=== PATIENT | female | born 1960 | race Caucasian/White ===

== ENCOUNTER 2016-08-10 07:38 | Observation (INO) | payer OTHER ==
[~2016-08-10] VITALS: Ht 167.6 cm; Wt 68.9 kg
[2016-08-10] MEDS ORDERED: RIVA1.5C PO (07:53)
[2016-08-10] MEDS ORDERED: RIVA6CAP PO (07:53)
[2016-08-10] MEDS ORDERED: QUET5TAB PO (07:53)
[2016-08-10] MEDS ORDERED: ZOLO100T PO (07:53)
[2016-08-10] MEDS ORDERED: ONDANSETRON 4MG/2ML VIAL (J2405) As Ordered ONE (08:13)
[2016-08-10] MEDS ORDERED: ONDANSETRON 4MG/2ML VIAL (J2405) IV ONE (08:15)
--- NOTE | 2016-08-10 08:16 | REP ---
Emergency noncontrast brain CT. History: Trauma. Findings: Digital lateral piano professor radiograph is unremarkable. Bone window settings demonstrate an intact bony calvarium. No skull fracture or bony destructive lesion is seen. The visualized paranasal sinuses are clear. No intraorbital abnormality is seen. There is mild to moderate diffuse cerebral atrophy. There is a small zone of intracranial hemorrhage along the falx near the vertex consistent with a small localized area of subdural or subarachnoid blood. There is a hemorrhagic contusion in the left frontal lobe medially. No rebecca hematoma is seen. The acute blood collection adjacent to the falx measures 1.5 x 0.4 cm. No parenchymal hematoma is appreciated. No midline shift is seen. No evidence of infarction or mass. Impression: 1. Hemorrhagic contusion in the left posteromedial frontal lobe. 2. 1.5 x 0.4 cm collection of acute blood adjacent to the falx may be subdural or subarachnoid. Findings were telephoned to the referring provider at the time of this dictation. Signed by Donte Glass MD 08/10/2016 10:43 A
[2016-08-10 08:20] LABS: BASO % 0.3 % (0.0-1.0); EOS # 0.1 K/mm3 (0.0-0.50); EOS % 1.5 % (0.0-3.0); LARGE UNSTAINED CELL # 0.1 K/mm3 (0.0-0.4); LYMPH # 1.8 K/mm3 (1.5-4.5); LYMPH % 25.4 % (24.0-44.0); MEAN CORPUSCULAR HEMOGLOBIN 27.3 pg (27.0-33.0); MEAN CORPUSCULAR HGB CONC 32.8 g/dl (32.0-36.5); MEAN CORPUSCULAR VOLUME 83.2 fl (80.0-96.0); MONO # 0.3 K/mm3 (0.0-0.8); MONO % 5.1 % (0.0-5.0); NEUTROPHILS # 4.4 K/mm3 (1.8-7.7); NEUTROPHILS % 65.7 % (36.0-66.0); PLATELET COUNT, AUTOMATED 259 k/mm3 (150-450); RED CELL DISTRIBUTION WIDTH 14.1 % (11.5-14.5); WHITE BLOOD COUNT 6.7 K/mm3 (4.0-10.0)
[2016-08-10 08:26] LABS: INR 0.97
[2016-08-10] MEDS ORDERED: METAL LOCK LOOP XX ONE (08:27)
[2016-08-10 08:29] LABS: VENOUS BASE EXCESS -2.3 (-2.0-2.0); VENOUS O2 SATURATION 86.1 % (60.0-80.0); VENOUS PARTIAL PRESSURE CO2 35.1 mmHg (38.0-50.0); VENOUS PARTIAL PRESSURE O2 49.8 mmHg (30.0-50.0); VENOUS STANDARD HCO3 22.3 MEQ/L; VENOUS TOTAL CO2 22.8 MEQ/L (24.0-28.0)
--- NOTE | 2016-08-10 08:29 | REP ---
Portable chest: Single view. History: Syncope. Comparison study: June 10, 2012. Findings: The lungs are well inflated and clear. Pleural angles are sharp. Heart size is normal. EKG monitoring electrodes overlie the chest. No bony abnormality is seen. Impression: No active disease. Signed by Donte Glass MD 08/10/2016 08:20 A
[2016-08-10 08:41] LABS: ABG BASE EXCESS 0.2 (-2.0-2.0); ABG HCO3 23.4 MEQ/L (22.0-26.0); ABG PARTIAL PRESSURE CO2 33.3 mmHg (35.0-45.0); ABG PARTIAL PRESSURE O2 123.4 mmHg (75.0-100.0); ABG STANDARD HCO3 24.7 MEQ/L (22.0-26.0); ABG TOTAL CO2 24.4 MEQ/L (22.0-29.0); ABG pH (ARTERIAL) 7.464 UNITS (7.350-7.450)
[2016-08-10 08:45] LABS: ANION GAP 12 MEQ/L (8-16); BLOOD UREA NITROGEN 11 MG/DL (7-18); CALCIUM LEVEL 8.6 MG/DL (8.5-10.1); CARBON DIOXIDE LEVEL 24 MEQ/L (21-32); CHLORIDE LEVEL 110 MEQ/L (98-107); CREATININE FOR GFR 0.75 MG/DL (0.55-1.02); FREE T4 0.89 NG/DL (0.76-1.46); GLOMERULAR FILTRATION RATE > 60.0 (>51); GLUCOSE, FASTING 130 MG/DL (70-105); MAGNESIUM LEVEL 2.4 MG/DL (1.8-2.4); POTASSIUM SERUM 3.7 MEQ/L (3.5-5.1); SODIUM LEVEL 146 MEQ/L (136-145)
--- NOTE | 2016-08-10 09:03 | REP ---
CT STUDY OF THE CERVICAL SPINE WITHOUT CONTRAST: HISTORY: Trauma. Fall down the stairs. TECHNIQUE: Helical scanning is acquired and overlapping 2 mm high resolution axial images were generated and reviewed at bone and soft tissue window settings. Coronal and sagittal multiplanar re-formations images are generated. CT FINDINGS: There is no evidence of cervical spine element fracture. No skull base fracture is seen. Cervical vertebral body heights are preserved. There are discogenic spurs changes consistent with degenerative disc disease at C5-6 and C6-7. Mild osteoarthritic facet changes are noted. Alignment is normal. Facet joints are normally aligned bilaterally at each cervical level on multiplanar re-formations images. There is no evidence of intraspinal or paraspinal hematoma. No extra vertebral abnormality is seen. IMPRESSION: Mild degenerative spondylosis changes, otherwise negative CT study of the cervical spine without contrast. No fracture seen. Signed by Donte Glass MD 08/10/2016 10:44 A
[2016-08-10] MEDS ORDERED: NS 1,000 ML in APPROPRIATE DILUENT 1 EA IV ONE (09:15)
[2016-08-10] MEDS ORDERED: AMIODARONE 150MG/3ML INJ (J0282) As Ordered ONE (09:49)
[2016-08-10] MEDS ORDERED: levETIRAcetam INJection 500 MG in D5W MINI-BAG PLUS 100 ML IV ONE (10:15)
--- NOTE | 2016-08-10 10:39 | REP ---
Right shoulder series: Three views. History: Injury. Findings: The right glenohumeral and acromioclavicular joints are normally aligned. Periarticular soft tissues are unremarkable. There is some diffuse osteopenia. Impression: Negative right shoulder views. Signed by Donte Glass MD 08/10/2016 10:46 A
[2016-08-10] MEDS: D5W/0.45% SODIUM CHLORIDE 1,000 ML IV SCH (13:16)
[2016-08-10] MEDS ORDERED: MORPHINE 2 MG/ML 1ML SYRINGE IV ONE (13:45)
--- NOTE | 2016-08-10 14:30 | CR ---
DATE OF CONSULTATION: 08/10/2016 REFERRING PHYSICIAN: Dr. Marinelli, neurosurgeon, via Dr. Cardenas, emergency room physician. REASON FOR CONSULT: Medical management. CHIEF COMPLAINT: Fall. Confusion. HISTORY OF PRESENT ILLNESS: This is a 56-year-old female who had been in her usual state of health until about two years ago when she had significant dementia notable at work. She was fully worked up by Dr. Stroud and was diagnosed with Lewy body dementia and has been full care since. The patient had been doing well at home with her with 24-7 care when she fell this morning as she was coming down the stairs. According to the , the patient has been well and denied any fever, chills, nausea, vomiting, diarrhea, chest pain, pressure, tightness, shortness of breath, palpitations, or lightheadedness. No lower or upper extremity weakness or paresthesias. No sick contacts. The patient awoke this morning. The went down to the kitchen to make some coffee and asked her if she wanted some coffee. The patient was heard at the top of the stairs and said that yes she did want some coffee. Her told her to come down. The patient said yes and within a few seconds the patient's heard a big thump down the stairs. The patient was found on the floor flat on her back and appeared to be having tonic clonic movements for a few seconds. The then called 911 at 7:11. EMS arrived up to about 20 minutes later. The patient was unconscious. According to the , the patient may have been wearing reading glasses as opposed to her other set of glasses, prompting her to miss some steps on the stairs and landing on her back. In the emergency room, she was found to have a 1.5 x 0.4 cm collection of acute blood in the falx, maybe subdural or subarachnoid hemorrhage. Hemorrhagic contusion was found in the left posteromedial frontal lobe. The patient awoke. She was given IV levetiracetam in the emergency room. Dr. Marinelli admitted the patient to neurosurgical services and the hospitalist was consulted via Dr. Cardenas who is the emergency room physician. The patient appeared to be stable. Pupils were reactive to light. The hospitalist service was called for consultation. PAST MEDICAL HISTORY: 1. Lewy body dementia for the past two years. Complete care at home with 24/7 care. 2. Depression. PAST SURGICAL HISTORY: None, as the patient is demented and not answering questions appropriately. HOME MEDICATIONS: - rivastigmine 1.5 twice a day - quetiapine 50 mg daily at bedtime - Zoloft 100 mg daily ALLERGIES: No known drug allergies. SOCIAL HISTORY: Lives with who provides 24/7 care. 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 No history of smoking. 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 No social alcohol use. No recreational drug use. FAMILY HISTORY: None, unable to be obtained as the history is obtained from the patient's . REVIEW OF SYSTEMS: Could not be obtained as the patient is demented, does not respond and moans at the bedside. PHYSICAL EXAMINATION: Temperature 97.6, pulse 77 - sinus, respiratory rate 20, blood pressure 127/77, 100% on room air. Generally, patient is awake, alert and oriented to person only. She has purposeful movements at the bedside. She has her eyes open, crying. Pupils are equally round and reactive to light and accommodation. Could not perform extraocular muscles as the patient is not cooperative. No jugular venous distention. No thyromegaly. No cervical lymphadenopathy. Lungs are clear to auscultation. No wheezing, rales or rhonchi. Heart: S1, S2. Sinus rhythm. No murmurs, rubs or gallops. Abdomen is soft, nontender and nondistended. Positive bowel sounds. Extremities: No cyanosis, clubbing or pitting edema. Neurologically, patient is not cooperative. She is moving her upper and lower extremities with purposeful movement. Patient does not follow commands. She has her eyes open and crying. EKG: Sinus rhythm. Ventricular rate of 76. UT interval 159. QRS duration 106. QTc of 437. No acute ischemic changes. LAB DATA: White count 6.7, hemoglobin 12, hematocrit 38, and platelet count 259. Sodium 146, potassium 3.7, chloride 110, bicarbonate 24, BUN 11, creatinine 0.75 , glucose 130. Ammonia level 17. Magnesium 2.4. Calcium 8.6. Total CK 144. MB fraction 1.2. Troponin less than 0.02. TSH 1.69. Free T4 is 0.89. MICROBIOLOGY: Pending. IMAGING STUDIES: CT of the head with hemorrhagic contusion left posteromedial frontal lobe, 1.5 x 0.4 collection of acute blood adjacent to the falx, may be subdural or subarachnoid. Cervical spine CT with no acute fracture or dislocation. Mild degenerative spondylolysis, otherwise negative CT, without contrast. Chest x-ray on 08/10/2016 with no active disease. Shoulder x-ray on 08/10/2016 negative right shoulder x-ray. ASSESSMENT AND PLAN: This is a 56-year-old female with recent diagnosis of Lewy body dementia for the past two years who has been full care at home with 24/7 care. Her is the primary caregiver. She was in her usual state of health until this morning when she fell down 12 steps at home as she was trying to get down to the kitchen to have her morning coffee. According to the , the patient had tonic clonic activity and was found flat on the floor with a 20 minute loss of consciousness until EMS arrived. She had a postictal confusion. No urine incontinence. She was brought in to the emergency room for further evaluation. She was found to have an acute 1.5 x 0.4 cm collection of blood in the falx, may be subdural or subarachnoid hemorrhage. The patient has been admitted under Dr. Marinelli, neurosurgical services. The hospitalist service was consulted for medical management. CURRENT ISSUES: 1. Acute 1.5 x 0.4 cm collection of blood, may be subdural or subarachnoid hemorrhage secondary to mechanical fall. Patient is under neurosurgical services, Dr. Marinelli. Neuro checks every 4 hours if possible. Repeat CT imaging to rule out edema or worsening progressive bleeding. At this time, she had been given IV Keppra for possible seizure activity status post head trauma with loss of consciousness of about [address] Marinelli for further neurosurgical management. 2. Seizure activity. The patient had fallen with head trauma with new acute blood found in the falx, possible subdural or subarachnoid hemorrhage. At this time, defer to Dr. Marinelli for further management. Currently on IV Keppra 500 mg every 12 hours. Keep nothing by mouth (n.p.o.) as the patient may continue to decompensate and may require intubation as well as neurosurgical intervention. Keep on D5 1/2 normal saline at 60 an hour. Monitor for mental status changes. no current signs of aspiration. no empiric antibiotics 3. Mechanical fall. Per the , the patient may have been wearing the wrong glasses as she came down the steps and had landed on her back with head trauma. The patient has not had prior history of recurrent falls in the past and is usually steady on her feet. According to the , there were no prodromal symptoms and the patient has been in her usual state of health. She denied any infectious symptoms prior to her fall. 4. Dehydration and hypernatremia. IV fluid hydration. 5. History of Lewy body dementia, progressive. The patient is 24/7 care at home per the who is the primary caregiver. 6. Deep vein thrombosis (DVT) prophylaxis with compression stockings due to acute brain hemorrhage. The patient is an intensive care unit (ICU) patient with continued telemetry monitoring. NIKI
--- NOTE | 2016-08-10 15:03 | ECGEPIP ---
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
[2016-08-10] MEDS ORDERED: LORazepam 2 MG/ML VIAL (J2060) As Ordered ONE (15:23)
[2016-08-10] MEDS ORDERED: LORazepam 2 MG/ML VIAL (J2060) IV STA (15:24)
[2016-08-10 16:00] VITALS: BP 110/54
[2016-08-10 18:00] VITALS: BP 121/67
[2016-08-10] MEDS: LORazepam 2 MG/ML VIAL (J2060) IV PRN ×2 (18:32→22:13)
[2016-08-10 20:00] VITALS: BP 132/65
[2016-08-10 20:30] VITALS: BP 134/63
[2016-08-10] MEDS ORDERED: ONDANSETRON 4MG/2ML VIAL (J2405) IV PRN (20:45)
[2016-08-10 22:00] VITALS: BP 128/62
[2016-08-10] MEDS: levETIRAcetam INJection 500 MG in D5W MINI-BAG PLUS 100 ML IV SCH (22:13)
[2016-08-11] VITALS (7 sets, daily range): BP systolic 100–116; BP diastolic 56–98
[2016-08-11] MEDS: D5W/0.45% SODIUM CHLORIDE 1,000 ML IV SCH (05:05)
[2016-08-11 05:10] LABS: BASO % 0.2 % (0.0-1.0); EOS % 0.5 % (0.0-3.0); LARGE UNSTAINED CELL # 0.1 K/mm3 (0.0-0.4); LARGE UNSTAINED CELL % 1.1 % (0.0-4.0); LYMPH # 0.9 K/mm3 (1.5-4.5); LYMPH % 13.8 % (24.0-44.0); MEAN CORPUSCULAR HEMOGLOBIN 27.4 pg (27.0-33.0); MEAN CORPUSCULAR HGB CONC 33.1 g/dl (32.0-36.5); MEAN CORPUSCULAR VOLUME 82.7 fl (80.0-96.0); MONO # 0.4 K/mm3 (0.0-0.8); MONO % 5.6 % (0.0-5.0); NEUTROPHILS % 78.7 % (36.0-66.0); PLATELET COUNT, AUTOMATED 170 k/mm3 (150-450); RED CELL DISTRIBUTION WIDTH 13.7 % (11.5-14.5); WHITE BLOOD COUNT 6.3 K/mm3 (4.0-10.0)
[2016-08-11 05:29] LABS: ALBUMIN 3.3 GM/DL (3.2-5.2); ALKALINE PHOSPHATASE 74 U/L (45-117); ALT/SGPT 17 U/L (12-78); ANION GAP 7 MEQ/L (8-16); AST/SGOT 14 U/L (15-37); BILIRUBIN,TOTAL 0.4 MG/DL (0.2-1.0); BLOOD UREA NITROGEN 8 MG/DL (7-18); CARBON DIOXIDE LEVEL 26 MEQ/L (21-32); CHLORIDE LEVEL 112 MEQ/L (98-107); CREATININE FOR GFR 0.53 MG/DL (0.55-1.02); GLOMERULAR FILTRATION RATE > 60.0 (>51); GLUCOSE, FASTING 124 MG/DL (70-105); POTASSIUM SERUM 3.5 MEQ/L (3.5-5.1); SODIUM LEVEL 145 MEQ/L (136-145); TOTAL PROTEIN 6.3 GM/DL (6.4-8.2)
[2016-08-11] MEDS ORDERED: MORPHINE 2 MG/ML 1ML SYRINGE IV ONE (06:45)
--- NOTE | 2016-08-11 06:50 | REPUSA ---
CLINICAL HISTORY: Followup exam. Contusion. TECHNIQUE: Multiple axial CT images were obtained through the brain without IV contrast material. COMMENTS: Comparison to the prior exam performed on 08/10/2016. There is no change in 3.5 mm maximum thickness parafalcine subdural hematoma. No associated mass effect. There is normal configuration of sella turcica. There is no mass effect or midline shift. No hydrocephalus is present. The ventricles are symmetrical. No abnormal calcifications are present. There is diffuse age-appropriate cerebellar and cerebral atrophy with proportionally dilated ventricl es and cortical sulci. There are bilateral periventricular and subcortical white matter hypolucencies compatible with mild c hronic microvascular disease. Otherwise, no other acute significant focal abnormalities are seen either in the posterior fossa or s upratentorial compartment. IMPRESSION: 1. Age-appropriate cerebellar and cerebral atrophy. 2. Mild chronic microvascular disease. 3. No change in the right parafalcine subdural hematoma. Thank you for your kind referral of this patient.
[2016-08-11 07:07] LABS: CALCIUM OXALATE CRYSTALS SMALL
[2016-08-11] MEDS ORDERED: KEPP500T6 PO (08:32)
--- NOTE | 2016-08-11 09:00 | ECGEPIP ---
Stationary ECG Study [facility] - ED Test Date: 2016-08-10 Pat Name: SHIRLEY GUTHRIE Department: Room: - Gender: F Facing Baster: blaise : 1960 Requested By: Ethel Mccarty Order Number: [id number] Reading MD: Ethel Mccarty Measurements Intervals [place] Rate: 76 P: 50 OR: 159 QRS: 62 QRSD: 106 T: 59 QT: 407 QTc: 459 Interpretive Statements SINUS RHYTHM NSTTW ABNORMALITY BASELINE ARTIFACT LIMITS INTERPRETATION NO PRIOR FOR COMPARISON Electronically Signed On 08-11-2016 8:59:56 EST by Ethel Mccarty
[2016-08-11] MEDS: levETIRAcetam INJection 500 MG in D5W MINI-BAG PLUS 100 ML IV SCH ×2 (09:03→21:07)
[2016-08-11] MEDS: SERTRALINE 100 MG TAB PO SCH (09:03)
[2016-08-11] MEDS: RIVASTIGMINE TARTRATE 1.5 MG CAP (EXELON) PO SCH ×2 (09:03→21:00)
[2016-08-11] MEDS: MORPHINE 2 MG/ML 1ML SYRINGE IV PRN (12:22)
--- NOTE | 2016-08-11 14:37 | ECGEPIP ---
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
[2016-08-11] MEDS: QUEtiapine FUMARATE 50 MG TAB PO SCH (21:07)
[2016-08-11] MEDS: LORazepam 2 MG/ML VIAL (J2060) IV PRN (21:42)
[2016-08-12] VITALS (7 sets, daily range): BP systolic 98–137; BP diastolic 56–75
[2016-08-12] MEDS ORDERED: D5W/0.45% SODIUM CHLORIDE 1,000 ML IV SCH (01:45)
[2016-08-12 04:58] LABS: MEAN CORPUSCULAR HEMOGLOBIN 27.4 pg (27.0-33.0); MEAN CORPUSCULAR HGB CONC 33.1 g/dl (32.0-36.5); MEAN CORPUSCULAR VOLUME 82.9 fl (80.0-96.0); PLATELET COUNT, AUTOMATED 150 k/mm3 (150-450); RED CELL DISTRIBUTION WIDTH 13.7 % (11.5-14.5); WHITE BLOOD COUNT 4.5 K/mm3 (4.0-10.0)
[2016-08-12 05:06] LABS: ANION GAP 6 MEQ/L (8-16); BLOOD UREA NITROGEN 5 MG/DL (7-18); CALCIUM LEVEL 7.8 MG/DL (8.5-10.1); CARBON DIOXIDE LEVEL 28 MEQ/L (21-32); CHLORIDE LEVEL 113 MEQ/L (98-107); CREATININE FOR GFR 0.46 MG/DL (0.55-1.02); GLOMERULAR FILTRATION RATE > 60.0 (>51); GLUCOSE, FASTING 118 MG/DL (70-105); POTASSIUM SERUM 3.5 MEQ/L (3.5-5.1); SODIUM LEVEL 147 MEQ/L (136-145)
[2016-08-12 06:26] LABS: BASO % 0.3 % (0.0-1.0); EOS # 0.1 K/mm3 (0.0-0.50); EOS % 1.3 % (0.0-3.0); LARGE UNSTAINED CELL # 0.1 K/mm3 (0.0-0.4); LARGE UNSTAINED CELL % 1.4 % (0.0-4.0); LYMPH # 1.1 K/mm3 (1.5-4.5); LYMPH % 21.9 % (24.0-44.0); MONO # 0.3 K/mm3 (0.0-0.8); MONO % 6.7 % (0.0-5.0); NEUTROPHILS # 3.3 K/mm3 (1.8-7.7); NEUTROPHILS % 68.4 % (36.0-66.0)
[2016-08-12 06:28] LABS: DIFF SLIDE NUMBER 69
[2016-08-12 06:31] LABS: AST/SGOT 13 U/L (15-37); BILIRUBIN,TOTAL 0.4 MG/DL (0.2-1.0); MAGNESIUM LEVEL 2.1 MG/DL (1.8-2.4)
[2016-08-12 06:46] LABS: ALKALINE PHOSPHATASE 66 U/L (45-117); ALT/SGPT 15 U/L (12-78)
[2016-08-12] MEDS: LORazepam 2 MG/ML VIAL (J2060) IV PRN (07:21)
--- NOTE | 2016-08-12 08:03 | ECGEPIP ---
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
[2016-08-12] MEDS: levETIRAcetam INJection 500 MG in D5W MINI-BAG PLUS 100 ML IV SCH ×2 (08:44→20:58)
[2016-08-12] MEDS: SERTRALINE 100 MG TAB PO SCH (08:45)
[2016-08-12] MEDS: RIVASTIGMINE TARTRATE 1.5 MG CAP (EXELON) PO SCH ×2 (08:46→20:56)
[2016-08-12] MEDS: MORPHINE 2 MG/ML 1ML SYRINGE IV PRN ×2 (09:25→19:53)
--- NOTE | 2016-08-12 12:08 | REP ---
REASON: History of hematoma. Prior exam of 08/11/2016 reviewed. The small parafalcine hematoma has improved with a minimal persistent residual at the convexities. Unchanged bilateral subdural lucencies are noted. There is no change in the appearance of the ventricles and sulci. There is no shift of the midline structures. There is no acute intracranial hemorrhage. There is no change in the appearance of the skull. There is no evidence of a fracture. Minimal mucosal thickening is seen in the ethmoid sinuses. IMPRESSION: Chronic changes and improvement as described above. Signed by Malcolm Alejandra DO 08/12/2016 01:52 P
--- NOTE | 2016-08-12 12:09 | IPN ---
DATE: 08/11/2016 Overnight, the patient was extremely agitated and anxious with her new environment in the intensive care unit (ICU). Per the , the patient was beside herself and could not be calmed down, requiring IV Ativan 0.25 mg every four hours. Per nursing, the patient was jumping out of the bed. They were unable to redirect her verbally, required medications. The patient was restarted back on her home medications. The patient's and daughter stayed with her overnight at the bedside. There appears to be no new neurological changes. Repeat CT of the head remains unchanged from prior CT of the head at 7:42 on 08/10/2016. No edema. No midline shift. No increase in the intracranial hemorrhage. VITAL SIGNS: Temperature 98.3, pulse 68, respiratory rate 16, blood pressure 110/62, 95% on room air. The patient responds to voice. Spontaneously opens her eyes and has purposeful movements. Localizes to pain. Pupils are equal, round and reactive to light and accommodation. 4 mm. She moans and is nonverbal. Motor function is 5/5 times four extremities. LABORATORY DATA: White count 6.3, hemoglobin 12, hematocrit 36, platelet count 170. Sodium 145, potassium 3.5, chloride 115, bicarbonate 26, BUN 8, creatinine 0.53, glucose of 124. Urine culture is pending. RSV negative. Methicillin resistant Staphylococcus aureus (MRSA) screen pending. IMAGING: Repeat CT of the head shows age appropriate cerebellar and cerebral atrophy, mild chronic microvascular changes, no change in the 3.5 mm subdural hematoma. No associated mass effect or midline shift. No hydrocephalus. IMPRESSION: 56-year-old female with a history of Lewy-Body dementia, full care at home with 24/7 care. The is the primary caregiver. Presents to the emergency room after falling from a standing height down 12 to 13 steps at home due to mechanical fall, no prodromal symptoms. The patient had tonic-clonic activity and loss of consciousness for 20 minutes. Was found to have a subdural hematoma. Admitted for observation with no surgical intervention. The patient had been placed on IV Keppra for seizure prophylaxis. She has been agitated throughout this admission and needed to receive Ativan as needed for restlessness and agitation and combativeness. CURRENT ISSUES: 1. Acute 3.5 mm subdural hematoma with no mass effect or edema. The patient is on antiseizure prophylaxis. Status post mechanical fall at home from standing position down 12 steps. The patient is currently under neurosurgical service with Dr. Marinelli. Defer to Dr. Marinelli for management of brain hemorrhage at this time. She is kept on Keppra 500 mg intravenously. Clears diet. is anxious to take her home, as her delirium is worsening due to change in environment. Defer to Dr. Marinelli as primary for discharge planning. Advance diet per Dr. Marinelli. 2. Lewy-Body dementia, chronic. Requires / care. 3. Witnessed seizure. On Keppra twice a day. 4. Mechanical fall. Per the , the patient was wearing the wrong glasses as she came down the stairs, landed on the back with head trauma and loss of consciousness for 20 minutes. 5. Dehydration and hypernatremia. IV fluid hydration and clear diet. 6. Deep vein thrombosis (DVT) prophylaxis with compression stockings. DISPOSITION: Defer to primary team, Dr. Marinelli.
[2016-08-12] MEDS: D5W/0.45% SODIUM CHLORIDE 1,000 ML IV SCH (19:03)
[2016-08-12] MEDS: ONDANSETRON 4MG/2ML VIAL (J2405) IV PRN (19:52)
[2016-08-12] MEDS: QUEtiapine FUMARATE 50 MG TAB PO SCH (20:56)
[2016-08-13 04:05] VITALS: BP 134/65
[2016-08-13 05:03] LABS: MEAN CORPUSCULAR HEMOGLOBIN 27.8 pg (27.0-33.0); MEAN CORPUSCULAR HGB CONC 34.5 g/dl (32.0-36.5); MEAN CORPUSCULAR VOLUME 80.6 fl (80.0-96.0); RED CELL DISTRIBUTION WIDTH 13.5 % (11.5-14.5); WHITE BLOOD COUNT 3.8 K/mm3 (4.0-10.0)
[2016-08-13 05:23] LABS: ANION GAP 7 MEQ/L (8-16); BLOOD UREA NITROGEN 4 MG/DL (7-18); CALCIUM LEVEL 7.5 MG/DL (8.5-10.1); CARBON DIOXIDE LEVEL 29 MEQ/L (21-32); CHLORIDE LEVEL 111 MEQ/L (98-107); CREATININE FOR GFR 0.43 MG/DL (0.55-1.02); GLOMERULAR FILTRATION RATE > 60.0 (>51); GLUCOSE, FASTING 110 MG/DL (70-105); POTASSIUM SERUM 3.1 MEQ/L (3.5-5.1); SODIUM LEVEL 147 MEQ/L (136-145)
[2016-08-13] MEDS: D5W/0.45% SODIUM CHLORIDE 1,000 ML IV SCH (06:10)
[2016-08-13] MEDS ORDERED: KCL 40MEQ IN D5/0.45NS 1000ML 1,000 ML IV ONE (08:00)
[2016-08-13] MEDS ORDERED: D5W 1,000 ML IV ONE (08:00)
[2016-08-13] MEDS: SERTRALINE 100 MG TAB PO SCH ×2 (08:31→09:00)
[2016-08-13] MEDS: RIVASTIGMINE TARTRATE 1.5 MG CAP (EXELON) PO SCH (08:31)
[2016-08-13 08:49] VITALS: BP 126/60
--- NOTE | 2016-08-13 08:57 | CR ---
DATE OF CONSULTATION: 08/13/2016 REFERRING PHYSICIAN: I was asked by Dr. Marinelli to see Mrs. Zambrano because of episodes of high degree arteriovenous (AV) block. HISTORY OF PRESENT ILLNESS: Mrs. Zambrano is previously unknown to me. She is a very unfortunate 56-year-old female who was diagnosed with Lewy body dementia approximately two years ago and her condition has been declining since. She was admitted after she suffered a fall at home. Unfortunately because she cannot provide any history, we do not know what preceded. Apparently she was upstairs and her called her down to have some coffee and almost immediately thereafter he heard a noise and found her laying under the stairs. An ambulance was called and they found her unconscious, but by the time she reached emergency room she was awake. The neurologic imaging revealed evidence for intracranial hemorrhage even though not very large. She was admitted for further observation. She had several episodes of high degree arteriovenous (AV) block with brief episode of complete heart block and pauses. They all occurred on 08/10 and 08/11. Each time apparently when this occurred it was in the setting when the patient was nauseated and vomiting. There were no episodes of high degree AV block outside of episodes of nausea and vomiting. All of these episodes were very short-lived. I was asked to comment on her further management. At the bedside the patient is unable to provide any reasonable history, but her daughter is at her bedside and I got some information from her. PAST MEDICAL HISTORY: 1. Lewy body dementia slowly progressive. 2. Depression. 3. Her daughter denies any history of cardiovascular symptoms or problems in the past. PAST SURGICAL HISTORY: Negative. HOME MEDICATIONS: - Zoloft 100 a day - rivastigmine 1.5 mg twice a day - quetiapine 50 mg at bedtime ALLERGIES: No allergies. SOCIAL HISTORY: The patient does not smoke and never did. She apparently used to drink excessively, more in the distant past but nothing in the last decade. 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 FAMILY HISTORY: Her daughter denies any first-degree relatives with early heart disease or dementia. REVIEW OF SYSTEMS: On the review of systems unfortunately cannot be obtained from the patient but again based on the daughter's history there is no prior history of syncope. There is no history of any cardiac problems at all. PHYSICAL EXAMINATION: GENERAL: Mrs. Zambrano is a middle-aged female who appears approximately her age or slightly older. She is sleeping in the intensive care unit (ICU) bed and when trying to wake her up she is moaning and opens her eyes but there is no collateral response. VITAL SIGNS: Blood pressure 134/65, heart rate from 50s-70s. She is afebrile. Saturation 97% on room air. HEENT/NECK: Her jugular venous pulse (JVP) is not up. LUNGS: Lungs are clear. HEART: Exam regular rhythm. I do not appreciate gallop, rub or murmur. ABDOMEN: Abdomen is soft and nontender. EXTREMITIES : There is no peripheral edema. NEUROLOGIC: I did not do a very thorough evaluation, but she clearly moves all four extremities. LABORATORY DATA: As of today, sodium 147, potassium 3.1, BUN 4, creatinine 0.4 and glucose 110. Normal liver function tests, normal cardiac enzymes. TSH was 0.9. CBC: Hemoglobin 11.9, hematocrit 34, platelet count 147,000. There is an ECG on August 12 and August 10 both of which reveal sinus rhythm with normal AV conduction and essentially normal QRS complex with if anything borderline incomplete right bundle branch block. ASSESSMENT/PLAN: This is a difficult situation. Mrs. Zambrano is a 56-year-old lady who has progressive dementia with very poor long-term prognosis. She presented after she fell at home. Then episodes of high degree arteriovenous (AV) block were documented but each one of them occurred when she had nausea and vomiting. It is most likely that the AV block was caused due to high vagal tone but I cannot totally rule out that she indeed had episodes causing her initial syncope. I am very reluctant though to consider placement of a pacemaker. I will address this issue with her who is her healthcare proxy. For the time being I would recommend that she does not take Exelon which is a medication which has been associated as a potential side effect with both nausea, vomiting as well as AV conduction problems. I will follow the patient with you. Thank you for this consultation. Addendum 08/14/16: Patient's contacted me later on 08/13/16. I explained to him that AV block is likely secondary to high vagal tone during episodes of vomiting but I cannot r/o that it is due to AV rebeca disease. In my opinion it is unlikely to occur outside of episode of vomiting. He would like to bring patient home even knowing that there is small risk of recurrent events. I raised no objections. cc: Ellis Marinelli MD MTDNishant
[2016-08-13] MEDS ORDERED: D5W 1,000 ML IV SCH (09:00)
[2016-08-13] MEDS: MORPHINE 2 MG/ML 1ML SYRINGE IV PRN (09:20)
[2016-08-13] MEDS: ONDANSETRON 4MG/2ML VIAL (J2405) IV PRN (09:21)
[2016-08-13] MEDS: levETIRAcetam INJection 500 MG in D5W MINI-BAG PLUS 100 ML IV SCH (11:15)
--- NOTE | 2016-08-13 11:41 | IPN ---
DATE: 08/12/2016 Yesterday, the patient had an episode of a third-degree block while she was vomiting and felt lightheadedness, most likely a vagal response. Case was discussed with Dr. Smith, rollout manager satellite project site monitor, and felt that this was most likely a vasovagal phenomenon as it has not been persistent, blood pressure was well maintained at 98-120. At this time patient has had no neurological changes, she is moaning at the bedside, has purposeful movements, does not cooperate, and occasionally combative. This morning, she is awake, alert, oriented to herself, sleeping at the bedside, but arousable, not cooperative with an interview. Vital signs: Temperature 97.1, pulse 69, respiratory rate 18, blood pressure 120/66, 98% on room air. Pupils are round, reactive to light and accommodation. Extraocular muscles could not be assessed as patient is not cooperative, goes back to sleep. Lungs are clear to auscultation. No wheezing, rales, or rhonchi. Heart S1, S2, sinus rhythm. Abdomen is soft, nontender, nondistended, positive bowel sounds. Extremities no edema. Laboratory data and imaging studies have been reviewed. ASSESSMENT AND PLAN: 56-year-old female had a mechanical fall with diagnosis of Lewy body dementia diagnosed 2 years ago, has full care at home with 24/7 care, is the primary caregiver, was in her usual state of health until the morning of presentation when she fell down 12 steps at home as she was trying to get down to the kitchen to have her morning coffee. According to the , he found her on her back with tonic-clonic activity, flat on the floor, with a 20 minute loss of consciousness until emergency medical service (EMS) arrived and head trauma. Patient had postictal confusion, no urine incontinence. She was brought into the emergency room for further evaluation and was found to have an acute 1.5 x 0.4 cm collection of blood in the falx, subdural versus subarachnoid hemorrhage. Patient was admitted under Dr. Marinelli, neurosurgical services, in intensive care unit (ICU). Hospitalist was consulted for medical management. IMPRESSION: 1. Acute subdural hematoma. Neurologic checks every 4 hours if possible. Patient has baseline Lewy body dementia and is most often uncooperative. Management per neurosurgical services. Currently on IV Keppra for seizure activity and seizure prophylaxis. Patient did have loss of consciousness for about [address] Marinelli for further management. 2. Seizure activity. Patient had fall and head trauma. No acute blood on the falx, subdural hemorrhage, no edema or shift. On IV Keppra. Currently not taking oral intake. Monitor for further mental status changes. Continue on IV fluid hydration. 3. Mechanical fall. Per the , patient was wearing the wrong glasses, she came down the stairs, landed on her back with head trauma and loss of consciousness. is able to provide 24/7 care at home. Apparently had no prodromal symptoms prior to the fall. 4. Dehydration and hypernatremia. Continue IV fluid hydration. 5. History of Lewy body dementia, progressive. Has 24/7 care at home and is the primary caregiver. 6. Complete heart block while vomiting, most likely a vasovagal response. Continue to monitor on telemetry. Per Dr. Smith, no acute need for pacemaker as this was occurring while the patient was nauseated and vomiting. 7. Deep vein thrombosis (DVT) prophylaxis with compression stockings due to acute brain hemorrhage. 8. Intensive care unit (ICU) patient with continued telemetry.
[2016-08-13] MEDS ORDERED: ZOFR8TAB4 PO (12:02)
[2016-08-13] MEDS ORDERED: ONDANSETRON 4 MG ORAL DISINTEGRATING TAB (S0181) SL ONE (12:15)
--- NOTE | 2016-08-13 16:31 | CR ---
DATE OF CONSULTATION: 08/12/2016 REFERRING PHYSICIAN: Racheal Tinoco MD HISTORY: The patient is a 56-year-old female who was admitted to the hospital on 08/10/2016 secondary to a fall. The patient is currently sedated and unable to provide any history, but according to the medical records, she fell on 2016 at home. Her woke up in the morning and went downstairs into the kitchen to make some coffee for her. He called her name and asked her to come down stairs. The next thing he hears is a big thud and her falling down the stairs. When he came to the stairs, he found her lying on the floor on her back. She was also witnessed to have tonic-clonic movements of her upper and lower extremities lasting for a few seconds. EMT was called in and she was brought to the ER here at the [facility]. While here, she was given IV Keppra. She had a CT scan of the brain performed which did show a 1.5 x 0.4 cm subdural hematoma. She was subsequently admitted for further care. In the ICU, she has been noted to have bradycardia for which she is being managed by the medicine team. In the past, she has been diagnosed with possible Lewy Body dementia. She was seen in my office, but she did not follow through for her symptoms. Her medications prior to admission here included Rivastigmine, Seroquel 50 mg at bedtime, and Zoloft 100 mg daily. She was placed on Seroquel for her auditory and visual hallucinations which had been under control lately. PAST MEDICAL HISTORY: Question of Lewy Body dementia. FAMILY HISTORY: The patient's family history is not obtainable at the present time. PERSONAL AND SOCIAL HISTORY: The patient lives with her who provides full care. There is no past medical history of smoking. The patient did drink heavily between the years of 1999 to 2005. She has been sober since then. All other systems were reviewed and found to be noncontributory. PHYSICAL EXAMINATION: On examination, the patient does not appear in any discomfort. She is currently sedated. Her posture is normal. Her blood pressure is 125/80. Pulse is 76 per minute. Respirations are 20 per minute. Her temperature is 97.8 degrees Fahrenheit. She is 5 feet 6 inches tall. She weighs about 68 kg. Her neck is supple. There is no carotid bruit audible. Her ear, nose and throat examination is normal. Lungs are clear to auscultation. Her heart is regular in rhythm. Her abdomen is nondistended. There is no ankle edema seen. Neurologically, she is sedated and lethargic. She does not respond to any significant verbal commands. Her pupils are about 3 mm in size and reactive to light. Her visual brantley could not be tested. Her face appears symmetrical. It is difficult to assess her motor function, but she seems to be moving all extremities fairly well. I do not see any resting tremors of the hands. Her sensory examination could not be performed. Deep tendon reflexes are 1+ and symmetrical with equivocal plantar reflexes. Her gait is not tested. DIAGNOSTIC STUDIES: The patient's CBC shows a white cell count of 4500, hemoglobin 12, hematocrit 36.3 and platelets 150,000. Her sodium is 145, potassium 3.5, BUN 8 and creatinine 0.5. Her calcium level is 8. Her ammonia level is 17. Thyroid functions are normal. Her MRI of the brain does show right parafalcine subdural hematoma. IMPRESSION: Status post fall. Witnessed grand mal seizure. Right parafalcine subdural hematoma. Cerebellar and cerebral atrophy. PLAN: 1. Continue with Keppra 5 mg twice a day. 2. Continue with other supportive care. 3. Wait for her mental status to improve before proceeding with other evaluation. 4. Continue with pain medications as necessary. Thank you very much for this consultation. NIKI
--- NOTE | 2016-08-14 06:21 | IPN ---
DATE: 08/13/2016 The patient had no repeat episodes of heart block on telemetry. Per Dr. Smith, aircraft air conditioning mechanic reception for the weekend, on review of the strips most likely secondary to vasovagal phenomenon with the patient vomiting during the episode of the complete heart block. The patient's blood pressure returned to normal as well as sinus rhythm. Currently, still with decrease in oral intake, moaning at the bedside, wanting to go home. Temperature 97.2, pulse 73, respiratory rate 20, blood pressure 126/60, 96% on room air. Generally, the patient is moaning at the bedside. She mumbles. She has purposeful movement. She is confused and disoriented to person, place and time. Unable to be interviewed and to adequately perform a neurologic test. Pupils are round, reactive. Extraocular muscles are intact. She is confused, unable to evaluate her speech as she is mumbling. She does not follow commands and would not cooperate with motor and sensory examination. Lungs are clear to auscultation. No wheezing, rales, or rhonchi. Heart: S1, S2, sinus rhythm. Abdomen is soft, nontender, nondistended. Extremities with no pitting edema. Laboratory data has been reviewed. Repeat CT of the head shows chronic changes with small parafalcine hematoma improved with minimal persistent residual at the convexities. Bilateral subdural lucencies are seen. No midline shift. No acute intracranial hemorrhage. ASSESSMENT AND PLAN: This is a 56-year-old female who has a history of Lewy body dementia diagnosed 2 years ago with full care 24/12 by the at home who was in her usual state of health until the morning of presentation when she fell down 12 steps at home from a standing position down the stairs and was found on the floor with her back down unconscious with tonic clonic movements and loss of consciousness for 20 minutes. According to the , patient may have been using the wrong eyeglasses, her reading glasses, as she went down. The patient was found to have an acute 1.5 x 0.4 cm collection of blood in the falx, subdural versus subarachnoid. The patient was admitted under Dr. Marinelli, neurosurgical services, in the intensive care unit (ICU). The hospitalist was consulted for medical management. IMPRESSION: 1. Acute intracranial hemorrhage. The patient is not cooperative with full neurologic examination. She has had two episodes of vomiting. She has refused oral intake. She has been placed on intravenous fluids. Repeat CT shows no edema, midline shift, or worsening hemorrhage. She has been placed on IV Keppra for seizure prophylaxis and full supportive care. During telemetry monitoring, she was found to have third degree heart block during the episode of vomiting most likely secondary to vasovagal response. This case was discussed with Dr. Smith who felt that her episodes were defined by the vasovagal response with vomiting and pain and at that time did not feel that the patient required further testing, monitoring or pacemaker. 2. Seizure activity status post fall with loss of consciousness for 20 minutes. Currently on IV Keppra. Will discharge home on oral Keppra. 3. Mechanical fall. Per the , patient may have been wearing the wrong glasses, her reading glasses, as she came down the stairs, landed on her back with head trauma and loss of consciousness for 20 minutes. The is able to provide 24/7 care at home. The patient had no prodromal symptoms prior to the fall. 4. Dehydration and hypernatremia due to decreased oral intake. Patient is refusing to eat and is extremely agitated in the intensive care unit outside of her home environment. Per the patient's , the patient is much more responsive to eating and drinking at home and is extremely agitated being in a different place. 5. History of Lewy body dementia, progressive. Has 24/7 care at home. is the primary caregiver and is requesting discharge as soon as possible due to worsening agitation and restlessness being in the intensive care unit setting. 6. Complete heart block while vomiting, most likely a vagal response. The patient has had no repeat episodes on telemetry. Per Dr. Smith, no acute indication for pacemaker, no need for formal consult. Dr. Marinelli consulted Dr. Cruz this morning who requested her Exelon to be discontinued. 7. Deep vein thrombosis (DVT) prophylaxis with compression stockings. [facility]
[2016-08-16 00:09] LABS: Lyme Disease IgG/IgM Antibodie <0.91 ISR (0.00-0.90); Lyme Disease IgM Ab Quantitati <0.80 index (0.00-0.79)
== END 2016-08-13 12:25 | disposition home or self-care (01) ==
LOC: EDBD 07:38 → M ED 09:10 → INTOOBSV 13:31 → M ED INP 13:31 → M ICU 15:34
PROVIDERS: ADMIT Neurological Surgery; ATTEND Internal Medicine
DX: S06.5X1A Traumatic subdural hemorrhage with loss of consciousness of 30 minutes or less, initial encounter (principal); W10.8XXA Fall (on) (from) other stairs and steps, initial encounter; Y92.099 Unspecified place in other non-institutional residence as the place of occurrence of the external cause; F02.80 Dementia in other diseases classified elsewhere, unspecified severity, without behavioral disturbance, psychotic disturbance, mood disturbance, and anxiety; G31.83 Neurocognitive disorder with Lewy bodies; G93.40 Encephalopathy, unspecified; R56.9 Unspecified convulsions; F32.9 Major depressive disorder, single episode, unspecified; I49.8 Other specified cardiac arrhythmias; Z79.899 Other long term (current) drug therapy; E86.0 Dehydration; E87.0 Hyperosmolality and hypernatremia; Y93.89 Activity, other specified
CPT/HCPCS: 36415; 36600; 70450; 71010; 72125; 73030; 80048; 80053; 81001; 82140; 82550; 82553; 82803; 83735; 84439; 84443; 85025; 85027; 85576; 85610; 86617; 87081; 87086; 87486; 87581; 87633; 87798; 93005; 93041; 94760; 96376; 99285; J1953; J2060; J2405

== ENCOUNTER → 2016-08-17 | Outpatient (REF) | payer OTHER ==
[~2016-08-17] MED LIST: KEPP500T6 PO; QUET5TAB PO; RIVA1.5C PO; RIVA6CAP PO; ZOFR8TAB4 PO; ZOLO100T PO
== END ==
LOC: M LAB REF 16:31
PROVIDERS: ATTEND Internal Medicine
DX: R23.1 Pallor (principal)

== ENCOUNTER 2016-08-21 07:37 | Inpatient (IN) | payer OTHER ==
[~2016-08-21] VITALS: Ht 167.6 cm; Wt 68.5 kg
[2016-08-21] MEDS ORDERED: RIVA1.5C PO (07:50)
[2016-08-21] MEDS ORDERED: LORazepam 2 MG/ML VIAL (J2060) IV STA (07:58)
[2016-08-21 08:14] LABS: BASO % 0.3 % (0.0-1.0); EOS # 0.1 K/mm3 (0.0-0.50); EOS % 2.1 % (0.0-3.0); LARGE UNSTAINED CELL # 0.1 K/mm3 (0.0-0.4); LARGE UNSTAINED CELL % 1.7 % (0.0-4.0); LYMPH # 0.9 K/mm3 (1.5-4.5); LYMPH % 20.4 % (24.0-44.0); MEAN CORPUSCULAR HEMOGLOBIN 28.1 pg (27.0-33.0); MEAN CORPUSCULAR HGB CONC 33.4 g/dl (32.0-36.5); MEAN CORPUSCULAR VOLUME 84.3 fl (80.0-96.0); MONO # 0.3 K/mm3 (0.0-0.8); NEUTROPHILS % 68.5 % (36.0-66.0); PLATELET COUNT, AUTOMATED 222 k/mm3 (150-450); RED CELL DISTRIBUTION WIDTH 14.1 % (11.5-14.5); WHITE BLOOD COUNT 4.3 K/mm3 (4.0-10.0)
[2016-08-21 08:34] LABS: ALBUMIN 3.7 GM/DL (3.2-5.2); ALBUMIN/GLOBULIN RATIO 1.19 (1.00-1.93); ALKALINE PHOSPHATASE 102 U/L (45-117); ALT/SGPT 27 U/L (12-78); ANION GAP 12 MEQ/L (8-16); AST/SGOT 11 U/L (15-37); BILIRUBIN,DIRECT 0.1 MG/DL (0.0-0.2); BILIRUBIN,TOTAL 0.4 MG/DL (0.2-1.0); BLOOD UREA NITROGEN 10 MG/DL (7-18); CALCIUM LEVEL 8.2 MG/DL (8.5-10.1); CARBON DIOXIDE LEVEL 22 MEQ/L (21-32); CHLORIDE LEVEL 111 MEQ/L (98-107); CREATININE FOR GFR 0.66 MG/DL (0.55-1.02); GLOMERULAR FILTRATION RATE > 60.0 (>51); GLUCOSE, FASTING 87 MG/DL (70-105); POTASSIUM SERUM 4.5 MEQ/L (3.5-5.1); SODIUM LEVEL 145 MEQ/L (136-145); TOTAL PROTEIN 6.8 GM/DL (6.4-8.2)
--- NOTE | 2016-08-21 08:35 | REP ---
Clinical: Altered Mental Status. Comparison: 08/10/2016. Findings: The mediastinum and cardiac silhouette are stable and within normal limits for portable technique. The lung brantley are clear without acute consolidation, effusion, or pneumothorax. Skeletal structures are intact. Impression: Stable. No acute process appreciated. Signed by Mayur Cueto MD 08/21/2016 08:27 A
[2016-08-21] MEDS: levETIRAcetam 250MG TABLET (KEPPRA) PO SCH ×2 (09:00→20:46)
[2016-08-21] MEDS ORDERED: NS 1,000 ML IV ONE (09:00)
[2016-08-21] MEDS ORDERED: levETIRAcetam INJection 500 MG in D5W MINI-BAG PLUS 100 ML IV ONE (09:00)
[2016-08-21] MEDS: SERTRALINE 100 MG TAB PO SCH ×2 (09:00→16:01)
--- NOTE | 2016-08-21 09:16 | REP ---
CT HEAD WITHOUT CONTRAST: HISTORY: Altered mental status. COMPARISON: 08/12/2016. There is no intraparenchymal hemorrhage, mass or midline shift. The ventricular system and cortical sulci are dilated consistent with minimal volume loss. 8 mm subdural hygromas are present over the cerebral hemispheres, unchanged in size compared to the previous study. There is no midline shift. The visualized sinuses are clear. IMPRESSION: There are bilateral 8 mm subdural hygromas over the cerebral hemispheres, unchanged in size compared to the previous study. There is no midline shift. Signed by Dequan Yeung MD 08/21/2016 09:34 A
--- NOTE | 2016-08-21 09:18 | REP ---
CT CERVICAL SPINE WITHOUT CONTRAST: HISTORY: Altered mental status. COMPARISON: 08/10/2016. There is no acute fracture. Disc bulges are present at the C3-4 and C4-5 levels. Disc bulges with associated osteophyte formation are present at the C5-6 and C6-7 levels. There is minimal narrowing of the spinal canal. Uncinate process and/or facet hypertrophy are present at the C3-4, C5-6 and C6-7 levels. These findings produce minimal to moderate narrowing of the neural foramina. The C5-6 and C6-7 intervertebral discs are decreased in height consistent with disc degeneration. There are 1.6 mm of anterior subluxation of C3 on 4. IMPRESSION: There is cervical spondylosis at the C3-4 through C6-7 levels. Signed by Dequan Yeung MD 08/21/2016 09:34 A
--- NOTE | 2016-08-21 10:33 | HPEPDOC ---
General Date of Admission 08/21/16 10:00am Primary Care Physician: SWAPNIL MENDEZ DO Chief Complaint The patient is a 56-year-old female admitted with a reason for visit of Fall at home with LOC. Source: Family Exam Limitations: Dementia, Other (LETHARGIC/SLEEPING) Timing/Duration: This morning Severity: Moderate Associated Symptoms: Unobtainable, Nausea, Vomiting, Seizure History of Present Illness This is a 56-year old female recently discharged from [facility] for intracranial hemorrhage s/p falls with suspected high grade AV rebeca block, returning today for multiple falls with head trauma. History is provided by her at bedside as patient is unable to provide any information secondary to lethargy. She is easily arousable but quickly falls back to sleep. states that since discharge she has had at least two falls. Both falls without any associated nausea or vomiting. First fall, which he refers to as not really a fall, she fell onto the couch without any obvious trauma. This morning she had stood up from the couch, displayed seizure like activity, fell backwards, her tried to hold her, but she fell back and hit her head. He states she was unconscious, but regained consciousness when EMS had arrived. He states there was no visible bladder or bowel incontinence. He states she was somewhat lethargic after regaining consciousness. Home Medications Scheduled Levetiracetam (Keppra) 500 Mg Tab 500 MG PO BID Quetiapine Fumerate (Quetiapine Fumarate) 50 Mg Tab 50 MG PO QHS (Reported) Sertraline Hcl (Zoloft) 100 Mg Tab 100 MG PO DAILY (Reported) Allergies Coded Allergies: No Known Allergies (Unverified , 08/10/16) Past Medical History Medical History 1. Lewy body dementia - as per family 2. Depression 3. Seizure disorder 4. High grade AV rebeca block Review of Symptoms Constitutional: Reports: Other (Unable to obtain ROS from patient. Available ROS as per HPI from .) Other systems Unable to obtain review of symptoms. Patient not able to answer questions secondary to lethargy. Physical Examination General Exam: Positive: Other (lethargic, easily arousable) Eye Exam: Positive: PERRLA, Negative: Sclera icteric ENT Exam: Positive: Atraumatic, Mucous membr. moist/pink Neck Exam: Positive: Supple Chest Exam: Positive: Clear to auscultation, Normal air movement Heart Exam: Positive: Rate Normal, Regular Rhythm Telemetry: Positive: No significant arrhythmia Abdomen Exam: Positive: Normal bowel sounds Extremity Exam: Negative: Edema Psych Exam: Negative: Oriented x 3 (unable to assess) Laboratory Data Labs 24H Laboratory Tests 2 08/21/16 07:59: Acetaminophen Level < 2.0L, Aspartate Amino Transf (AST/SGOT) 11L, Alanine Aminotransferase (ALT/SGPT) 27, Alkaline Phosphatase 102, Total Bilirubin 0.4, Direct Bilirubin 0.1, Albumin 3.7, Albumin/Globulin Ratio 1.19, Anion Gap 12, White Blood Count 4.3, Red Blood Count 4.53, Hemoglobin 12.7, Hematocrit 38.2, Mean Corpuscular Volume 84.3, Mean Corpuscular Hemoglobin 28.1, Mean Corpuscular Hemoglobin Concent 33.4, Red Cell Distribution Width 14.1, Platelet Count 222, Neutrophils (%) (Auto) 68.5H, Lymphocytes (%) (Auto) 20.4L, Monocytes (%) (Auto) 7.0H, Eosinophils (%) (Auto) 2.1, Basophils (%) (Auto) 0.3 , Neutrophils # (Auto) 3.0, Lymphocytes # (Auto) 0.9L, Monocytes # (Auto) 0.3, Eosinophils # (Auto) 0.1, Basophils # (Auto) 0.0, Calcium Level 8.2L, Creatine Kinase MB 1.0, Creatine Kinase MB Relative Index 0.99, Ethyl Alcohol Level < 0.003, Glomerular Filtration Rate > 60.0, Large Unclassified Cells # 0.1, Large Unclassified Cells % 1.7, Salicylates Level < 1.7L, Thyroid Stimulating Hormone (TSH) 1.860, Total Creatine Kinase 101, Total Protein 6.8, Troponin I < 0.02 08/21/16 08:26: Ammonia 12 08/21/16 08:27: Lactic Acid Level 2.8*H CBC/BMP Laboratory Tests 08/21/16 07:59 Red Blood Count 4.53, Mean Corpuscular Volume 84.3, Mean Corpuscular Hemoglobin 28.1, Mean Corpuscular Hemoglobin Concent 33.4, Red Cell Distribution Width 14.1 , Neutrophils (%) (Auto) 68.5 H, Lymphocytes (%) (Auto) 20.4 L, Monocytes (%) ( Auto) 7.0 H, Eosinophils (%) (Auto) 2.1, Basophils (%) (Auto) 0.3, Neutrophils # (Auto) 3.0, Lymphocytes # (Auto) 0.9 L, Monocytes # (Auto) 0.3, Eosinophils # (Auto) 0.1, Basophils # (Auto) 0.0 Problems (1) Fall Status: Acute Response to Treatment: Uncontrolled Discussed With: Health Care Proxy Problem Specific Plan: Monitor Clinically, Repeat Labs, Repeat Tests Problem Text: Etiology not clear - seizure? cardiac etiology/arrhythmia? Hydrocephalus? MRI brain pending. Discussed with neurosurgery with recommendations for intervention to address hydrocephalus. Family wishes to discuss further neurosurgical intervention with neurology. PT/OT, fall precautions. Telemetry monitoring. Cardiology, neurology consultation. Neurosurgery consultation pending family decision. (2) Seizure Status: Acute Discussed With: Health Care Proxy Problem Specific Plan: Consult Specialist, Monitor Clinically, Repeat Labs, Repeat Tests Problem Text: Possible etiology for falls. Neurology consultation pending. Seizure precautions. Adjust medications. (3) Intracranial hemorrhage Status: Chronic Discussed With: Community Relations Representative, Health Care Proxy Problem Specific Plan: Monitor Clinically, Repeat Tests Problem Text: Discussed with neurosurgery. Recent history of subdural/subarachnoid hemorrhage s/p fall. Images reviewed, appears to have no changes from previous imaging. Concern for hydrocephalus. Family still to decide on plan. (4) Lewy body dementia Status: Chronic Discussed With: Health Care Proxy Problem Specific Plan: Monitor Clinically Problem Text: Patient not at baseline as per family. Neurology consultation pending. Possible delirium - infectious workup pending - fajardo culture. (5) AV heart block Status: Acute Discussed With: Health Care Proxy Problem Specific Plan: Consult Specialist Problem Text: Telemetry monitoring. Cardiology consultation. Previous admission with history of high degree AV rebeca block, possibly secondary to nausea , vomiting. (6) Alcohol abuse Status: Chronic Discussed With: Health Care Proxy Problem Specific Plan: Monitor Clinically Problem Text: History of alcohol abuse as per . Plan / VTE VTE Prophylaxis Ordered?: Yes (mechanical) Plan Plan Admission for multiple falls of unknown etiology in the setting of recent intracranial hemorrhage and high grade AV rebeca block. Admit for telemetry monitoring, PT eval, cardiology and neurology consultations. Adjust anti eleptic medications. Further neurosurgical consultation pending family decision. services mgr evaluation for possible home services. Activity: Continue Current Therapy: PT, OT, Speech Diagnostics: Repeat Labs in AM, MRI Anticipated Discharge: Home With Services RACHAEL DAVIS MD Aug 21, 2016 10:33
[2016-08-21 11:35] VITALS: BP 107/57
--- NOTE | 2016-08-21 13:20 | REP ---
MR BRAIN WITHOUT CONTRAST: HISTORY: Altered mental status. COMPARISON: MR 08/13/[address] 08/21/2016. Several punctate areas of increased signal intensity on T2-weighted images are present in the subcortical white matter. This represents small vessel ischemic disease. There is intraparenchymal hemorrhage, infarct, mass, or midline shift. The ventricular system and cortical sulci are dilated consistent with minimal volume loss. 8 mm subdural hygromas are present over the cerebral hemispheres. There is no midline shift. The sinuses are clear. IMPRESSION: 1. There are bilateral 8 mm subdural hygromas over the cerebral hemispheres. There is no midline shift. 2. Minimal small vessel ischemic disease.3. Minimal volume loss. Signed by Dequan Yeung MD 08/21/2016 01:35 P
[2016-08-21 13:47] VITALS: BP 132/61
[2016-08-21 16:00] VITALS: BP 136/77
[2016-08-21] MEDS ORDERED: QUEtiapine FUMARATE 25 MG TAB PO ONE (18:30)
[2016-08-21 20:00] VITALS: BP 121/77
[2016-08-21] MEDS ORDERED: QUEtiapine FUMARATE 50 MG TAB PO SCH (21:00)
--- NOTE | 2016-08-21 21:14 | CR ---
DATE OF CONSULTATION: 08/21/2016 REFERRING PHYSICIAN: Dr. Yan. INDICATION: Fall with questionable syncope. HISTORY OF PRESENT ILLNESS: Mrs. Zambrano is known to me from my previous consultation on her approximately a week ago on 08/13/2016. She is an unfortunate 56-year-old female who has Lewy body dementia and then presented after a fall. She caused herself small subdural hematomas and while she was monitored in ICU she had episodes of nausea and vomiting that were associated with very brief high degree AV block. This time she again had fall at home. She is unable to provide any history but I was able to talk her . He apparently was trying to help her undress a sweater and as she was pulling it over her head and her arms, she stumbled backwards, was able to make two or three steps but then fell and hit her head. She was apparently unconscious approximately 40 seconds but she was not unconscious before the fall, she actually was talking to him as the incidence of occurred. She was then brought for further evaluation. This time there was no evidence for any tee arrhythmias. She had no nausea, vomiting and neuro imaging did not reveal any new abnormalities. She continues to have small vessel ischemic disease and hygromas consistent with recent subdural hemorrhage. I am unable to obtain any history from the patient. PAST MEDICAL HISTORY: 1. Lewy body dementia. 2. Depression. PAST SURGICAL HISTORY: No surgeries. MEDICATIONS: - Zoloft - Keppra 500 twice a day - Quetiapine 50 mg at bedtime ALLERGIES: No allergies. REVIEW OF SYSTEMS: Review of systems unobtainable from the patient. PHYSICAL EXAMINATION: The patient is sitting in ICU bed. She is sobbing and appears mildly agitated. She has been talking but there does not seem to be any sense to her verbal expressions. Vital signs: Though blood pressure 136/77, heart rate in 70s. She is afebrile. Saturation 97% on room air. She freely moves all four extremities. Her heart exam has regular rhythm. I do not appreciate a murmur or gallop. The rest of the exam is difficult due to her uncooperation. LABORATORY: She has normal CBC and normal cardiac enzymes and her lactic acid initially was slightly elevated. ECG reveals presence of sinus rhythm with ventricular rate 78 beats per minute and is normal. Her neuro imaging as per HPI. ASSESSMENT/PLAN: Mrs. Zambrano is a 56-year-old female who has progressive Lewy body dementia. I was asked by Dr. Yan to see her because of possible syncope but she clearly did not have syncopal event, but rather a fall that was followed by impact on her head and she probably has concussion again. I do not believe there is anything cardiac to be suspected here. During her prior admission she had very brief episodes of high degree AV block during episodes of nausea and vomiting. I think it is overwhelming probability that the AV block was secondary to the nausea, vomiting and not a primary event. At this point it is reasonable to continue monitoring her on telemetry overnight, but it if nothing occurs I do not believe that any further evaluation is warranted. NIKI
[2016-08-21] MEDS ORDERED: SLF 3 ML SYR IV PRN (22:45)
[2016-08-22] VITALS: BP 101/59
[2016-08-22 04:00] VITALS: BP 112/64
[2016-08-22 05:47] LABS: BASO % 0.6 % (0.0-1.0); EOS # 0.1 K/mm3 (0.0-0.50); EOS % 2.1 % (0.0-3.0); LARGE UNSTAINED CELL # 0.1 K/mm3 (0.0-0.4); LARGE UNSTAINED CELL % 2.1 % (0.0-4.0); LYMPH # 1.4 K/mm3 (1.5-4.5); LYMPH % 25.5 % (24.0-44.0); MEAN CORPUSCULAR HEMOGLOBIN 27.3 pg (27.0-33.0); MEAN CORPUSCULAR HGB CONC 32.9 g/dl (32.0-36.5); MEAN CORPUSCULAR VOLUME 83.1 fl (80.0-96.0); MONO # 0.4 K/mm3 (0.0-0.8); MONO % 7.6 % (0.0-5.0); NEUTROPHILS # 3.3 K/mm3 (1.8-7.7); PLATELET COUNT, AUTOMATED 188 k/mm3 (150-450); RED CELL DISTRIBUTION WIDTH 14.2 % (11.5-14.5); WHITE BLOOD COUNT 5.3 K/mm3 (4.0-10.0)
[2016-08-22] MEDS ORDERED: SLF 3 ML SYR IV SCH (06:00)
[2016-08-22 06:15] LABS: ANION GAP 6 MEQ/L (8-16); BLOOD UREA NITROGEN 8 MG/DL (7-18); CALCIUM LEVEL 8.1 MG/DL (8.5-10.1); CARBON DIOXIDE LEVEL 27 MEQ/L (21-32); CHLORIDE LEVEL 112 MEQ/L (98-107); CREATININE FOR GFR 0.49 MG/DL (0.55-1.02); GLOMERULAR FILTRATION RATE > 60.0 (>51); GLUCOSE, FASTING 84 MG/DL (70-105); POTASSIUM SERUM 3.7 MEQ/L (3.5-5.1); SODIUM LEVEL 145 MEQ/L (136-145)
[2016-08-22 06:57] LABS: ERYTHROCYTE SEDIMENTATION RATE 17 mm/hr (0-30)
--- NOTE | 2016-08-22 07:14 | ECGEPIP ---
Stationary ECG Study [facility] - ED Test Date: 2016-08-21 Pat Name: SHIRLEY GUTHRIE Department: Room: - Gender: F Desktop Support Specialist: JKristyn : 1960 Requested By: Hermila Pitts Order Number: [id number] Reading MD: Ethel Mccarty Measurements Intervals [place] Rate: 78 P: 40 VT: 157 QRS: 41 QRSD: 102 T: 48 QT: 381 QTc: 435 Interpretive Statements SINUS RHYTHM RIGHT CONDUCTION DELAY DECREASED RATE 08/12/16 Electronically Signed On 08-22-2016 7:14:16 EDT by Ethel Mccarty
[2016-08-22 08:00] VITALS: BP 121/58
[2016-08-22] MEDS: SERTRALINE 100 MG TAB PO SCH (08:32)
[2016-08-22] MEDS: levETIRAcetam 250MG TABLET (KEPPRA) PO SCH (08:32)
--- NOTE | 2016-08-22 10:12 | DS.PDOC ---
Discharge Summary General Date of Admission Aug 21, 2016 at 10:01 Date of Discharge 08/22/16 Specialist/Consultants Involve: RALPH COMBS MD Specialist/Consultants Involve Cardiology, Dr. Cruz. Phone conversation with Dr. Marinelli. Discharge Summary PROCEDURES PERFORMED DURING STAY: [None]. ADMITTING DIAGNOSES: 1. Falls 2. Dementia 3. Depression 4. Seizure disorder DISCHARGE DIAGNOSES: 1. Falls 2. Dementia 3. Depression 4. Seizure disorder COMPLICATIONS/CHIEF COMPLAINT: FALL. HISTORY OF PRESENT ILLNESS: 56 year-old female admitted for multiple falls. HOSPITAL COURSE: Patient admitted for multiple falls, questionable etiology. Some concern of syncope or arrhythmia. All history was provided by on admission. Patient was admitted to PCU for telemetry monitoring. No significant events noted. Cardiology consultation no further workup. Neurology consultation obtained. No further workup indicated as inpatient. Case discussed with neurosurgery also, however patient's (HCP) not interested in any further neurosurgical workup. Patient essentially at baseline mentation. Patient 's not interested in placement. Patient discharged in stable condition with instructions as indicated. DISCHARGE MEDICATIONS: Please see below. ALLERGIES: Please see below. PHYSICAL EXAMINATION ON DISCHARGE: VITAL SIGNS: Please see below. GENERAL: NAD HEENT: NC/AT, EOMI, PERRL NECK: supple CARDIOVASCULAR EXAMINATION: +S1S2, RRR RESPIRATORY EXAMINATION: CTA B/L ABDOMINAL EXAMINATION: soft, NT, +BS EXTREMITIES: no edema SKIN: no rashes NEUROLOGICAL EXAMINATION: unable to assess PSYCHIATRIC EXAMINATION: unable to assess LABORATORY DATA: Please see below. MRI Brain: 1. There are bilateral 8 mm subdural hygromas over the cerebral hemispheres. There is no midline shift. 2. Minimal small vessel ischemic disease.3. Minimal volume loss. PROGNOSIS: poor prognosis ACTIVITY: [As tolerated]. DIET: Regular diet as tolerated. DISCHARGE PLAN: Discharge home. DISCHARGE INSTRUCTIONS: 1. Medications as directed. 2. Follow up PCP in 1-3 days. DISCHARGE CONDITION: Poor prognosis. TIME SPENT ON DISCHARGE: Greater than 30 minutes. Vital Signs/I&Os Vital Signs Date Time Temp Pulse Resp B/P Pulse Ox O2 Delivery O2 Flow Rate FiO2 08/22/16 08:00 98.7 70 18 121/58 96 Room Air 08/21/16 13:21 2 I&O- Last 24 Hours up to 6 AM 08/22/16 06:00 Intake Total 1200 ml Output Total 0 ml Balance 1200 ml Laboratory Data Labs 24H Laboratory Tests 2 08/21/16 14:23: Creatine Kinase MB 3.2, Creatine Kinase MB Relative Index 2.51, Lactic Acid Followup at 4 Hours 0.7, Total Creatine Kinase 127, Troponin I < 0.02 08/21/16 18:47: Creatine Kinase MB 3.3, Creatine Kinase MB Relative Index 2.11, Total Creatine Kinase 156, Troponin I < 0.02 08/22/16 05:10: Anion Gap 6L, White Blood Count 5.3, Red Blood Count 4.21, Hemoglobin 11.5L, Hematocrit 35.0L, Mean Corpuscular Volume 83.1, Mean Corpuscular Hemoglobin 27.3 , Mean Corpuscular Hemoglobin Concent 32.9, Red Cell Distribution Width 14.2, Platelet Count 188, Neutrophils (%) (Auto) 62.0, Lymphocytes (%) (Auto) 25.5, Monocytes (%) (Auto) 7.6H, Eosinophils (%) (Auto) 2.1, Basophils (%) (Auto) 0.6 , Neutrophils # (Auto) 3.3, Lymphocytes # (Auto) 1.4L, Monocytes # (Auto) 0.4, Eosinophils # (Auto) 0.1, Basophils # (Auto) 0.0, C-Reactive Protein, Quantitative < 0.30, Blood Urea Nitrogen 8, Creatinine 0.49L, Sodium Level 145, Potassium Level 3.7, Chloride Level 112H, Carbon Dioxide Level 27, Calcium Level 8.1L, Erythrocyte Sedimentation Rate 17, Glomerular Filtration Rate > 60.0 , Large Unclassified Cells # 0.1, Large Unclassified Cells % 2.1 CBC/BMP Laboratory Tests 08/22/16 05:10 Calcium Level 8.1 L, Red Blood Count 4.21, Mean Corpuscular Volume 83.1, Mean Corpuscular Hemoglobin 27.3, Mean Corpuscular Hemoglobin Concent 32.9, Red Cell Distribution Width 14.2, Neutrophils (%) (Auto) 62.0, Lymphocytes (%) (Auto) 25.5, Monocytes (%) (Auto) 7.6 H, Eosinophils (%) (Auto) 2.1, Basophils (%) ( Auto) 0.6, Neutrophils # (Auto) 3.3, Lymphocytes # (Auto) 1.4 L, Monocytes # ( Auto) 0.4, Eosinophils # (Auto) 0.1, Basophils # (Auto) 0.0 Microbiology Microbiology 08/22/16 Blood Culture, Received Pending 08/22/16 Blood Culture, Received Pending Discharge Medications Scheduled Levetiracetam (Keppra) 500 Mg Tab 500 MG PO BID Quetiapine Fumerate (Quetiapine Fumarate) 50 Mg Tab 50 MG PO QHS (Reported) Sertraline Hcl (Zoloft) 100 Mg Tab 100 MG PO DAILY (Reported) Allergies Coded Allergies: No Known Allergies (Unverified , 08/10/16) RACHAEL DAVIS MD Aug 22, 2016 10:12
--- NOTE | 2016-08-22 11:23 | CR ---
DATE OF CONSULTATION: 08/22/2016 REASON FOR CONSULTATION: Delirium. HISTORY OF PRESENT ILLNESS: The patient is a 56-year-old female with diagnosis of Lewy Body dementia with multiple falls most recent occurring in 08/12 with parafalcine small subdural versus subarachnoid hemorrhage resolving on its own presenting with an episode of standing up, becoming shaky and falling backwards hitting her head into the wall. The patient may have lost some consciousness for a brief period of time as reported by her initially. He had commented that the patient may have had seizure-like activity of the limbs. The patient was somewhat lethargic after regaining consciousness. However, due to her baseline dementia, it was hard to ascertain whether she was postictal. She remains on Keppra 5 mg twice a day. During the hospital stay while in the ER and on the floor, she was very agitated. The patient was extremely agitated trying to climb out of bed. She was given 2 mg of Ativan in the emergency department which had initially calmed her down but she continued to be very anxious. She was given Seroquel 25 mg dosage in the early evening, that calmed her down and helped her to sleep for a short time. She usually takes Seroquel 50 mg at bedtime. She may benefit from a small dosage of Seroquel during the daytime. PAST MEDICAL HISTORY: Lewy Body dementia. History of alcohol abuse. History of seizure disorder. History of subdural versus subarachnoid hemorrhage 08/12/2016 after fall. AV block. HOME MEDICATIONS: - levetiracetam 500 mg by mouth twice daily - quetiapine 50 mg by mouth daily at bedtime - Sertraline 100 mg daily ALLERGIES: None. SOCIAL HISTORY: The patient no longer uses alcohol. Does not smoke, does not use recreational drugs. Lives at home with her . FAMILY HISTORY: Noncontributory. REVIEW OF SYSTEMS: Unable to ascertain due to the patient's cognitive status. The patient's thought content is tangential, she is often crying. Pseudobulbar affect may be present. PHYSICAL EXAMINATION: Blood pressure 136/77, pulse rate 71, respiratory rate is 19, temperature 97.8 degrees Fahrenheit, 97% oxygenation on room air. Patient is seen to move the upper and lower extremity symmetrically. Pupils are round and reactive to light. Extraocular movements are observed to be intact in all directions. Facial symmetry is preserved on activation. The patient is able to stand with some steadiness without falling. The patient was not allowed to walk far from the bed due to fear of being unsteady. She will need physical therapy (PT), occupational therapy (OT) clearance. She appears to react to tactile stimulation in all four extremities. Deep tendon reflexes are 2s throughout. Romberg testing hard to ascertain. ASSESSMENT: 56-year-old female with Lewy Body dementia with acute delirium being currently treated with quetiapine and history of seizure disorder with questionable seizure upon arrival. PLAN: 1. Continue Keppra 5 mg by mouth twice daily. Consider increasing Seroquel to 12.5 mg by mouth daily every morning and 50 mg daily at bedtime. The patient can followup in the outpatient neurology clinic as scheduled. MRI of the brain did not reveal any acute stroke. Bilateral subdural hygromas are likely chronic at this point and have not changed in imaging since 08/12/2016. I would avoid any surgical intervention for them at this point.
--- NOTE | 2016-08-23 21:46 | ECGEPIP ---
Stationary ECG Study [facility] Test Date: 2016-08-22 Pat Name: SHIRLEY GUTHRIE Department: Room: [place] [address] Gender: F Plant Wrapper: : 1960 Requested By: RACHAEL Roa Order Number: [id number] Reading MD: Ty Cruz Measurements Intervals [place] Rate: 77 P: 45 PA: 151 QRS: 62 QRSD: 107 T: 55 QT: 409 QTc: 464 Interpretive Statements SINUS RHYTHM INCOPLETE RBBB NO CHANGE SINCE 08/21/16 Electronically Signed On 08-23-2016 21:46:02 EDT by Ty Cruz
== END 2016-08-22 12:57 | disposition home health service (06) | DRG 204 ==
LOC: M ED 08:46 → M ED INP 10:01 → M PCU 13:34
PROVIDERS: ADMIT Internal Medicine; ATTEND Internal Medicine
DX: R55 Syncope and collapse (principal); G31.83 Neurocognitive disorder with Lewy bodies; I44.2 Atrioventricular block, complete; F02.80 Dementia in other diseases classified elsewhere, unspecified severity, without behavioral disturbance, psychotic disturbance, mood disturbance, and anxiety; F32.9 Major depressive disorder, single episode, unspecified; G40.909 Epilepsy, unspecified, not intractable, without status epilepticus; R29.6 Repeated falls; F10.21 Alcohol dependence, in remission; D18.1 Lymphangioma, any site; Z79.899 Other long term (current) drug therapy

== ENCOUNTER 2016-09-02 06:58 | Emergency (ER) | payer OTHER ==
[2016-09-02] MEDS ORDERED: LORazepam 2 MG/ML VIAL (J2060) IV STA (08:01)
--- NOTE | 2016-09-02 09:08 | REP ---
Clinical: Trauma. Comparison: 08/21/2016, 08/12/2016. Findings: Nonacute bilateral subdural hygromas are unchanged measuring up to 8 mm maximal width. The ventricles are symmetric and normal. Bocanegra-white differentiation is maintained. No acute intracranial hemorrhage, mass/mass effect, pathology or trauma noted. No acute extra-axial fluid collection identified. The calvarium is intact the paranasal sinuses and mastoid air cells are clear. Impression: Chronic/nonacute bilateral subdural hygromas unchanged. No acute intracranial pathology or trauma/injury. Signed by Mayur Cueto MD 09/02/2016 08:59 A
--- NOTE | 2016-09-02 09:11 | REP ---
Clinical: Trauma. Technique: Axial noncontrast images from the skull base to the thoracic inlet with coronal and sagittal re-formations. Comparison: 08/10/2016, 08/21/2016. Findings: Alignment and lordosis maintained. Moderate multilevel degenerative disc osteophyte complexes noted. No acute fracture / compression injury or subluxation. Spinal canal is patent. Posterior elements and spinous processes are intact. Paravertebral soft tissues are normal. Impression: Stable moderate multilevel degenerative changes. No acute cervical spine trauma/injury. Signed by Mayur Cueto MD 09/02/2016 09:02 A
[2016-09-02] MEDS ORDERED: levETIRAcetam 250MG TABLET (KEPPRA) PO ONE (09:30)
[2016-09-02] MEDS ORDERED: levETIRAcetam INJection 500 MG in D5W MINI-BAG PLUS 100 ML IV ONE (11:00)
[2016-09-02 11:39] VITALS: BP 128/85
== END 2016-09-02 11:56 | disposition home or self-care (01) ==
LOC: EDSEX 06:58 → EDBD 06:58 → M ED 08:20
DX: R56.9 Unspecified convulsions (principal); F03.90 Unspecified dementia, unspecified severity, without behavioral disturbance, psychotic disturbance, mood disturbance, and anxiety; D18.1 Lymphangioma, any site; M25.78 Osteophyte, vertebrae
CPT/HCPCS: 70450; 72125; 96374; 96375; 99282; J1953; J2060